=== PATIENT | female | born 1960 | race Caucasian/White ===

== ENCOUNTER 2020-12-01 15:17 | Emergency (ER) | payer OTHER ==
[~2020-12-01] VITALS: Ht 165.1 cm; Wt 49.9 kg
[2020-12-01] MEDS ORDERED: [UNRECOGNIZED DRUG - OTHER] PO (15:45)
[2020-12-01 19:45] VITALS: BP 168/75
== END 2020-12-01 19:45 | disposition home or self-care (01) ==
LOC: M.ERS 15:17
DX: S52.591A Other fractures of lower end of right radius, initial encounter for closed fracture (principal); S52.691A Other fracture of lower end of right ulna, initial encounter for closed fracture; Z88.8 Allergy status to other drugs, medicaments and biological substances; Z90.89 Acquired absence of other organs; W01.0XXA Fall on same level from slipping, tripping and stumbling without subsequent striking against object, initial encounter; Y93.89 Activity, other specified; Y99.8 Other external cause status; Y92.89 Other specified places as the place of occurrence of the external cause

== ENCOUNTER 2021-02-17 11:56 | Emergency (ER) | payer OTHER ==
[~2021-02-17] VITALS: Ht 165.1 cm; Wt 59.0 kg
[~2021-02-17 11:56] MED LIST: [UNRECOGNIZED DRUG - OTHER] PO
[2021-02-17] MEDS ORDERED: NAPROSYN500 MG PO (12:04)
[2021-02-17] MEDS ORDERED: SLEEP AID25 MG PO (12:05)
[2021-02-17] MEDS ORDERED: METHOCARBAMOL500 M2 PO (12:05)
[2021-02-17] MEDS ORDERED: ADDERALL 20 MG20 MG PO (12:05)
[2021-02-17] MEDS ORDERED: ONDANSETRON ODT4 MG PO (12:06)
[2021-02-17] MEDS ORDERED: CORTEF5 MG PO ×2 (12:06→12:08)
[2021-02-17] MEDS ORDERED: SEROQUEL 100 M100 M1 PO (12:06)
[2021-02-17] MEDS ORDERED: REMERON 30 MG T30 M1 PO (12:07)
[2021-02-17] MEDS ORDERED: CELEXA 10 MG TA10 M1 PO (12:07)
[2021-02-17] MEDS ORDERED: NORVASC5 MG PO (12:07)
[2021-02-17] MEDS ORDERED: OLANZAPINE ODT5 MG PO (12:07)
[2021-02-17] MEDS ORDERED: PROZAC20 M1 PO (12:08)
[2021-02-17] MEDS ORDERED: LIPITOR 10 MG10 M1 PO (12:08)
--- NOTE | 2021-02-17 15:58 | EKG ---
[place] [address] ELECTROCARDIOGRAM REPORT Name: MKSAMY Gianna Room: [facility]#: [id number] Admission: 02/17/21 Attend Phys: Discharge: Date of : 58 Date of Service: 02/17/211540 Report #: [id number] THIS REPORT FOR: //name// [facility] ED Test Date: 2021-02-17 Test Time: 15:41:05 Pat Name: SAMY TERRAZAS Department: Room: Gender: Adjunct Professor Of Law: BRAULIO : 1960 Requested By: Waldo Cruz Order Number: [id number] MD: Eugenio Mcdermott Measurements Intervals [place] Rate: 70 P: 60 [place]: 165 QRS: 17 QRSD: 89 T: 17 QT: 441 QTc: 476 Interpretive Statements Sinus rhythm Borderline T abnormalities, anterior leads Borderline prolonged QT interval No previous ECG available for comparison Electronically Signed On 02-17-2021 15:58:23 CDT by Eugenio Mcdermott [email or web address] <ELECTRONICALLY SIGNED> By: Eugenio Mcdermott MD, [facility] 02/17/21 1558 154 154 Eugenio Mcdermott MD, FACC /EPI
[2021-02-17 16:07] LABS: ABSOLUTE EOSINOPHILS 0.1 thou/uL (0.0-0.7); ABSOLUTE LYMPHOCYTES 0.7 thou/uL (0.8-5.3); ABSOLUTE MONOCYTES 0.6 thou/uL (0.0-1.2); ABSOLUTE NEUTROPHILS 7.9 thou/uL (1.6-8.1); BASOPHILS 0.5 %; EOSINOPHILS 1.4 %; HEMATOCRIT 38.8 % (37.0-47.0); HEMOGLOBIN 12.8 gm/dL (12.0-15.0); LYMPHOCYTES 7.2 %; MCH 26.7 pg (26.0-34.0); MCV 80.9 fL (80.0-100.0); MONOCYTES 6.7 %; MPV 8.1 fl. (7.2-11.1); NUCLEATED RBCS 0 /100WBC; PLATELET COUNT* 314 thou/uL (150-400); POLYS 84.2 %; RBC 4.79 mil/uL (4.20-5.00); RDW-CV 14.5 % (10.5-14.5); WBC 9.4 thou/uL (4.0-11.0)
[2021-02-17 16:16] LABS: CREATININE 1.4 mg/dL (0.6-1.3)
[2021-02-17 16:20] LABS: ALBUMIN 3.8 g/dL (3.4-5.0); TOTAL BILIRUBIN 0.3 mg/dL (<0.1-1.0); TOTAL PROTEIN 7.2 g/dL (6.4-8.2)
[2021-02-17 18:04] LABS: URINE BILIRUBIN NEGATIVE (Negative); URINE BLOOD NEGATIVE (Negative); URINE COLOR YELLOW; URINE GLUCOSE-RANDOM NEGATIVE (Negative); URINE KETONES NEGATIVE (Negative); URINE LEUKOCYTES-REFLEX NEGATIVE (Negative); URINE NITRITE-REFLEX NEGATIVE (Negative); URINE PROTEIN NEGATIVE (Negative); URINE UROBILINOGEN 0.2 E.U./dl (0.2-1.0)
[2021-02-17 18:06] LABS: URINE CLARITY CLEAR
[2021-02-17 19:00] VITALS: BP 132/68
== END 2021-02-17 19:00 | disposition home or self-care (01) ==
LOC: M.ERS 11:56
PROVIDERS: Physician Assistant
DX: R60.0 Localized edema (principal); R74.01 Elevation of levels of liver transaminase levels; K76.9 Liver disease, unspecified; M06.9 Rheumatoid arthritis, unspecified; Z90.89 Acquired absence of other organs; Z88.8 Allergy status to other drugs, medicaments and biological substances; Z79.899 Other long term (current) drug therapy